=== PATIENT | female | born 1980 | race Caucasian/White ===

== ENCOUNTER 2018-06-16 08:48 | Emergency (ER) | payer SELFPAY ==
[~2018-06-16] VITALS: Ht 160 cm; Wt 70.9 kg
[2018-06-16] MEDS ORDERED: IBUP-2071 PO (09:06)
[2018-06-16 10:15] VITALS: BP 129/84
[2018-06-16] MEDS ORDERED: KETOROLAC TROMETHAMINE 60 MG/2 ML VIAL IM ONE (10:15)
[2018-06-16] MEDS ORDERED: METHOCARBAMOL 500 MG TABLET PO ONE (10:15)
== END 2018-06-16 10:38 | disposition home or self-care (01) ==
LOC: EMS 08:49
DX: S13.4XXA Sprain of ligaments of cervical spine, initial encounter (principal); S09.90XA Unspecified injury of head, initial encounter; V49.49XA Driver injured in collision with other motor vehicles in traffic accident, initial encounter; Y93.89 Activity, other specified; Y92.481 Parking lot as the place of occurrence of the external cause; Y99.8 Other external cause status
CPT/HCPCS: 96372; 99283; J1885